=== PATIENT | female | born 1985 | race African-American/Black ===

== ENCOUNTER 2016-05-19 12:18 | Emergency (ER) | payer SELFPAY ==
--- NOTE | 2016-05-19 12:57 | ERRECORD ---
[facility] EMERGENCY RECORD HPI VAGINAL DISCHARGE (12:32 DHAM) CHIEF COMPLAINT: Patient presents for evaluation of vaginal itching. HISTORIAN: History provided by patient. LOCATION: Symptoms are localized, most severe in the vagina, Pt has not been taking her diabetic medicine for the last 3 days. she does not recall the name of the medicine and she has plenty of medicine at home. QUALITY: Discharge described as, small amount, of white discharge, with pruritis, no foul odor, "small white chunks in the discharge". SEVERITY: Current severity of pain rated as 8/10. TIME COURSE: Gradual onset of symptoms, 3, days priror to arrival. ASSOCIATED WITH: No associated chills, No associated diarrhea, No associated fever, No associated flank pain, No associated loss of appetite, No associated nausea, No associated trauma, No associated urinary tract infection signs or symptoms, No associated vomiting. EXACERBATED BY: Patient's condition exacerbated by nothing. RELIEVED BY: Patient's condition relieved by nothing. ROS (12:35 DHAM) CONSTITUTIONAL: Historian denies chills, denies fever. GENITOURINARY FEMALE: Historian denies dysuria, reports frequency, denies , denies urgency, denies vaginal bleeding, reports vaginal discharge. MUSCULOSKELETAL: Historian denies arthralgias, denies back pain, denies fall, denies injury. SKIN: Historian denies rash, denies skin changes. ENDOCRINE: Historian reports polydipsia, reports polyuria. HEMO/LYMPHATIC: Historian denies abnormal blood clotting. PAST MEDICAL HISTORY (12:26 JSHI) MEDICAL HISTORY: Past medical history includes history of diabetes, Type II. FEMALE SURGICAL HISTORY: BREAST REDUCTION, Surgical history of tubal ligation. PSYCHIATRIC HISTORY: no history of suicidal ideations, No history of suicide attempts, No history of hallucinations, No history of homicidal ideations, No history of violence towards others, No previous psychiatric history. VERIFIED 16. SOCIAL HISTORY: Patient currently uses drugs, abuses marijuana, Social drug use, Drug history notes: WEEKLY, Patient has no smoking history, Patient denies alcohol use,. KNOWN ALLERGIES No Known Allergies (Unconfirmed) No Known Drug Allergies CURRENT MEDICATIONS (12:23 [facility]) &a-1R&a+25V*p+0X*[id number]*c202B*c15G*c2P*p-0X&a-25V&a+1R Name: Ana Paula Conway : 1985 F30 MedRec: [id number] AcctNum: [id number] Prepared: WedMay 20, 2016 10:52 by Interface Page 1 of 2 pMD [facility] EMERGENCY RECORD None VITAL SIGNS (12:22 JSHI) VITAL SIGNS: BP: 125/85, Pulse: 78, Resp: 16, Temp: 98.5 (Oral), Pain: 8, O2 sat: 98 on Room Air, Time: 05/19/2016 12:22. PHYSICAL EXAM (12:41 DHAM) CONSTITUTIONAL: Vital signs reviewed, Patient afebrile, Pulse normal, Blood pressure normal, Respiratory rate normal, Patient appears non toxic, Patient appears pain free, Patient alert and oriented to person, place and time. ABDOMEN FEMALE: Abdominal exam included findings of abdomen nontender, Bowel sounds normal, Liver normal, Spleen normal, no distension, no peritoneal signs, no rigidity, no guarding, no rebound, no ventral hernia, no incisional hernia. GENITOURINARY FEMALE: Genitourinary exam included findings of external genitalia normal, Discharge present, white in color, small amount, small clumps of cottage cheese like material on the external genitalia. BACK: pt declined speculum exam. NEURO: Juliano coma scale 15, Neuro exam findings include patient oriented to person, place and time, Speech normal, Gait normal. SKIN: Skin exam included findings of skin warm, dry, and normal in color, no rash. PSYCHIATRIC: Psychiatric exam included findings of patient oriented to person place and time. PROBLEM LIST No recorded problems DIAGNOSIS (12:43 DHAM) FINAL: PRIMARY: yeast vaginitis. PRESCRIPTION (12:47 DHAM) Diflucan: TABLET : 150 mg : ORAL : Quantity: 1 Unit: tab(s) Route: ORAL Schedule: once a day (in the morning) Dispense: 2 Unit: tab(s) May substitute. Refills: No Refills . NOTES: take one today and repeat in 3 days if not totally resolved. No refills. DISPOSITION PATIENT: Disposition Type: Discharge, Disposition: *Discharge Home. (12:43 DHAM) Patient left the department. (12:51 LGIB) Castle: BLANCA=MD Ana, Bob JSMI=BRITTANY Hendrix, Juana LGIB=BRITTANY Strong, Nanette &a-1R&a+25V*p+0X*x2422D*c202B*c15G*c2P*p-0X&a-25V&a+1R Name: Ana Paula Conway Meg : 1985 F30 MedRec: [id number] AcctNum: [id number] Prepared: Eamon May 20, 2016 10:52 by Interface Page 2 of 2 pMD MTDD
--- NOTE | 2016-05-19 13:03 | PICIS ---
[facility] EMERGENCY RECORD TRIAGE (WedMay 19, 2016 12:23 JSMI) PATIENT: NAME: Ana Paula Conway, AGE: 30, GENDER: female, : Wed1985, TIME OF GREET: WedMay 19, 2016 12:19, PREFERRED LANGUAGE: [place] Leonean, ETHNICITY: Not or , FALL RISK: NO, ECODE BILLING MAP: [facility], SSN: [id number], Zip Code: [address], KG WEIGHT: 68.04, , , PERSON ID: [id number], PAYMENT: [employer] Self Pay, PCP: [facility]. (WedMay 19, 2016 12:23 JSMI) PHONE: . (12:27) COMPLAINT: vaginal itching. (WedMay 19, 2016 12:23 JSMI) ADMISSION: URGENCY: 4 Non Urgent, ADMISSION SOURCE: Home, TRANSPORT: CAR, BED: ER -02. (WedMay 19, 2016 12:23 JSMI) ASSESSMENT: Assessment: PT PRESENTS AWAKE ALERT AND ORIENTED. SKIN PINK WARM AND DRY., Symptoms began 05/17/2016. (12:26 JSMI) IMMUNIZATIONS: Flu vaccine up to date, Tetanus immunization up to date. (12:26 JSMI) SIRS SCORING: Heart Rate 55-109 (0), Temp range 96.8-101.1 (0), respiratory rate 12-24 (0), Mental Status altered: no (0). (12:26 JSMI) PROVIDERS: TRIAGE NURSE: Juana Hendrix RN. (WedMay 19, 2016 12:23 JSMI) VITAL SIGNS: BP 125/85, Pulse 78, Resp 16, Temp 98.5, (Oral), Pain 8, O2 Sat 98, on Room Air, Time 05/19/2016 12:22. (12:22 JSMI) PREVIOUS VISIT ALLERGIES: No Known Drug Allergies. (WedMay 19, 2016 12:23 JSMI) No Known Drug Allergies. (12:26 JSMI) KNOWN ALLERGIES No Known Allergies (Unconfirmed) No Known Drug Allergies CURRENT MEDICATIONS (12:23 JSMI) None VITAL SIGNS (12:22 JSMI) VITAL SIGNS: BP: 125/85, Pulse: 78, Resp: 16, Temp: 98.5 (Oral), Pain: 8, O2 sat: 98 on Room Air, Time: 05/19/2016 12:22. NURSING ASSESSMENT: GENITOURINARY (12:40 JSMI) CONSTITUTIONAL: Complex assessment performed, Patient arrives ambulatory, Gait steady, History obtained from patient, Patient appears comfortable, Patient cooperative, Patient alert, Oriented to person, place and time, Skin warm, Skin dry, Skin normal in color, Mucous membranes pink, Mucous membranes moist, Patient is well-groomed, Patient complains of VAGINAL ITCHING. PAIN FEMALE: to the clitoris, to the left labia majora, to the right labia majora, to the labia majora, to the left labia minora, to the right labia minora, to the labia minora, to the vagina. &a-1R&a+25V*p+0X*t6850X*c202B*c15G*c2P*p-0X&a-25V&a+1R Name: Ana Paula Conway : 1985 F30 MedRec: [id number] AcctNum: [id number] Prepared: WedMay 20, 2016 10:57 by Interface Page 1 of 4 pMD [facility] EMERGENCY RECORD GENITOURINARY FEMALE: Associated with vaginal discharge, of cheesy, white discharge. ABDOMEN: Abdomen soft, non-tender. NURSING PROCEDURE: BEDSIDE TESTING (12:33 JSMI) GLUCOSE: Capillary blood sample, Result (mg/dl) 94. NURSING PROCEDURE: DISCHARGE NOTE (12:50 LGIB) DISCHARGE: Patient discharged to home, ambulating without assistance, driving self, unaccompanied, Summary of Care printed/ provided, Patient requested and was provided an electronic copy of Discharge Instructions, Discharge instructions given to patient, Simple or moderate discharge teaching performed, Prescriptions given and instructions on side effects given, Above person(s) verbalized understanding of discharge instructions and follow-up care, Patient treated and evaluated by physician. BELONGINGS: Belongings and valuables with patient at time of discharge include:, Belongings remain with patient, Valuables remain with patient. HPI VAGINAL DISCHARGE (12:32 DHAM) CHIEF COMPLAINT: Patient presents for evaluation of vaginal itching. HISTORIAN: History provided by patient. LOCATION: Symptoms are localized, most severe in the vagina, Pt has not been taking her diabetic medicine for the last 3 days. she does not recall the name of the medicine and she has plenty of medicine at home. QUALITY: Discharge described as, small amount, of white discharge, with pruritis, no foul odor, "small white chunks in the discharge". SEVERITY: Current severity of pain rated as 8/10. TIME COURSE: Gradual onset of symptoms, 3, days priror to arrival. ASSOCIATED WITH: No associated chills, No associated diarrhea, No associated fever, No associated flank pain, No associated loss of appetite, No associated nausea, No associated trauma, No associated urinary tract infection signs or symptoms, No associated vomiting. EXACERBATED BY: Patient's condition exacerbated by nothing. RELIEVED BY: Patient's condition relieved by nothing. ROS (12:35 [facility]) CONSTITUTIONAL: Historian denies chills, denies fever. GENITOURINARY FEMALE: Historian denies dysuria, reports frequency, denies , denies urgency, denies vaginal bleeding, reports vaginal discharge. MUSCULOSKELETAL: Historian denies arthralgias, denies back pain, denies fall, denies injury. SKIN: Historian denies rash, denies skin changes. ENDOCRINE: Historian reports polydipsia, reports polyuria. &a-1R&a+25V*p+0X*f7249J*c202B*c15G*c2P*p-0X&a-25V&a+1R Name: Ana Paula Conway : 1985 F30 MedRec: [id number] AcctNum: [id number] Prepared: WedMay 20, 2016 10:57 by Interface Page 2 of 4 pMD [facility] EMERGENCY RECORD HEMO/LYMPHATIC: Historian denies abnormal blood clotting. PAST MEDICAL HISTORY (12:26 [facility]) MEDICAL HISTORY: Past medical history includes history of diabetes, Type II. FEMALE SURGICAL HISTORY: BREAST REDUCTION, Surgical history of tubal ligation. PSYCHIATRIC HISTORY: no history of suicidal ideations, No history of suicide attempts, No history of hallucinations, No history of homicidal ideations, No history of violence towards others, No previous psychiatric history. VERIFIED 04/13/16. SOCIAL HISTORY: Patient currently uses drugs, abuses marijuana, Social drug use, Drug history notes: WEEKLY, Patient has no smoking history, Patient denies alcohol use,. PHYSICAL EXAM (12:41 DHAM) CONSTITUTIONAL: Vital signs reviewed, Patient afebrile, Pulse normal, Blood pressure normal, Respiratory rate normal, Patient appears non toxic, Patient appears pain free, Patient alert and oriented to person, place and time. ABDOMEN FEMALE: Abdominal exam included findings of abdomen nontender, Bowel sounds normal, Liver normal, Spleen normal, no distension, no peritoneal signs, no rigidity, no guarding, no rebound, no ventral hernia, no incisional hernia. GENITOURINARY FEMALE: Genitourinary exam included findings of external genitalia normal, Discharge present, white in color, small amount, small clumps of cottage cheese like material on the external genitalia. BACK: pt declined speculum exam. NEURO: Juliano coma scale 15, Neuro exam findings include patient oriented to person, place and time, Speech normal, Gait normal. SKIN: Skin exam included findings of skin warm, dry, and normal in color, no rash. PSYCHIATRIC: Psychiatric exam included findings of patient oriented to person place and time. EVENTS TRANSFER: Triage to Emergency Emergency Room -02. (12:23 JSMI) Removed from Emergency Emergency Room -02. (12:51 LGIB) PROBLEM LIST No recorded problems DIAGNOSIS (12:43 DHAM) FINAL: PRIMARY: yeast vaginitis. DISPOSITION PATIENT: Disposition Type: Discharge, Disposition: *Discharge Home. (12:43 DHAM) Patient left the department. (12:51 LGIB) &a-1R&a+25V*p+0X*h0329Z*c202B*c15G*c2P*p-0X&a-25V&a+1R Name: Ana Paula Conway Meg : 1985 F30 MedRec: [id number] AcctNum: [id number] Prepared: WedMay 20, 2016 10:57 by Interface Page 3 of 4 pMD [facility] EMERGENCY RECORD INSTRUCTION (12:45 DHAM) DISCHARGE: YEAST VAGINITIS. FOLLOWUP: [facility], Clinic, [address] [facility], [address], [facility] [address], . SPECIAL: Diflucan 150mg one today and repeat in 3 days if not totally resolved. Please take your diabetes medicine regularly as this will decrease the likelihood of recurrent yeast infections. Return here or see your pcp if your discharge and itching haven't resolved or certainly for fever or any worsening or other concerns. PRESCRIPTION (12:47 [facility]) Diflucan: TABLET : 150 mg : ORAL : Quantity: 1 Unit: tab(s) Route: ORAL Schedule: once a day (in the morning) Dispense: 2 Unit: tab(s) May substitute. Refills: No Refills . NOTES: take one today and repeat in 3 days if not totally resolved. No refills. IMAGING *DISCHARGE INSTRUCTIONS RECEIPT: Image captured from scanner. (12:51 LGIB) *SUPPLY CHARGE SHEET: Image captured from scanner. (12:52 LGIB) ADMIN (WedMay 20, 2016 10:48 [facility]) DIGITAL SIGNATURE: MD Perez Darren. Castle: BLANCA=MD Perez Darren JSMI=BRITTANY Hendrix Julie LGIB=BRITTANY Strong, Nanette &a-1R&a+25V*p+0X*k7360A*c202B*c15G*c2P*p-0X&a-25V&a+1R Name: Ana Paula Conway : 1985 F30 MedRec: [id number] AcctNum: [id number] Prepared: WedMay 20, 2016 10:57 by Interface Page 4 of 4 pMD MTDD
== END 2016-05-19 12:49 | disposition home or self-care (01) ==
LOC: BURERS 12:18
DX: B37.3 Candidiasis of vulva and vagina (principal); E11.9 Type 2 diabetes mellitus without complications
CPT/HCPCS: 36416; 99283

== ENCOUNTER 2017-01-24 06:25 | Emergency (ER) | payer SELFPAY ==
[2017-01-24 06:56] LABS: Bilirubin Negative (Negative); Blood, Urine Small (Negative); Clarity Cloudy (Clear); Glucose, Urine (Dipstick) Negative (Negative); Leukocyte Large (Negative); Nitrite Negative (Negative); Protein, Urine (Dipstick) 30 mg/dL (Neg-Trace); Specific Gravity, Urine 1.025 (1.005-1.030); pH, Urine 6.5 (5.0-9.0)
[2017-01-24 06:57] LABS: Pregnancy Test - Urine (BHCG) Negative (Negative); Pregu Control Background? CLEAR/WHITE (CLR/WHITE); Pregu Control Bar Appear? YES (CONTROL BAR); Specific Gravity 1.025 (1.002-1.036)
[2017-01-24] MEDS ORDERED: Fluconazole 100 MG TAB ONE (06:58)
[2017-01-24] MEDS ORDERED: Ketorolac Tromethamine 60 MG/2 ML VIAL ONE (06:59)
[2017-01-24 07:01] LABS: WBC/HPF 21-50 HPF (0-3)
[2017-01-24 07:02] LABS: Bacteria/HPF 2+ HPF (None Seen)
[2017-01-25 22:06] LABS: Chlamydia by PCR Not Detected (NotDetected); GC by PCR Not Detected (NotDetected)
== END 2017-01-24 07:20 | disposition home or self-care (01) ==
LOC: BURERS 06:25
DX: B37.3 Candidiasis of vulva and vagina (principal); E11.9 Type 2 diabetes mellitus without complications
CPT/HCPCS: 81003; 81015; 81025; 87077; 87086; 87480; 87491; 87510; 87591; 87660; 96372; J1885

== ENCOUNTER 2018-09-13 07:23 | Emergency (ER) | payer SELFPAY ==
[2018-09-13] MEDS ORDERED: Ibuprofen 800 MG TAB ONE (07:56)
--- NOTE | 2018-09-13 17:29 | RAD ---
LEFT SHOULDER THREE VIEWS 09/13/18 No fracture or dislocation was seen. The AC joint is normal in width. The scapula and visible adjacen t ribs appeared intact. IMPRESSION: No acute findings. POS: HOME
== END 2018-09-13 08:03 | disposition home or self-care (01) ==
LOC: BURERS 07:23
DX: S46.012A Strain of muscle(s) and tendon(s) of the rotator cuff of left shoulder, initial encounter (principal); X50.1XXA Overexertion from prolonged static or awkward postures, initial encounter

== ENCOUNTER 2018-10-31 19:33 | Emergency (ER) | payer SELFPAY ==
[2018-10-31] MEDS ORDERED: Fluconazole 100 MG TAB ONE ×2 (19:57→20:03)
[2018-10-31 20:10] LABS: Clarity Cloudy (Clear)
[2018-10-31 20:11] LABS: Bacteria/HPF 2+ HPF (None Seen); Bilirubin Negative (Negative); Blood, Urine Small (Negative); Crystals/HPF None Seen HPF (Negative); Glucose, Urine (Dipstick) Negative (Negative); Hyaline Casts/LPF NONE SEEN LPF (0-3 Hyaline); Leukocyte Large (Negative); Nitrite Negative (Negative); Other Casts/LPF None Seen LPF (0-3 Hyaline); Oval Fat Bodies/HPF None Seen HPF (None Seen); Protein, Urine (Dipstick) Trace mg/dL (Neg-Trace); Renal Epithelial None Seen HPF (0-3); Sperm/HPF None Seen HPF (None Seen); Transitional Epithelial None Seen HPF (0-3); Trichomonas/HPF None Seen HPF (None Seen); Yeast-All Forms None Seen HPF (None Seen)
== END 2018-10-31 20:17 | disposition home or self-care (01) ==
LOC: BURERS 19:33
DX: N30.01 Acute cystitis with hematuria (principal); N76.0 Acute vaginitis
CPT/HCPCS: 81003; 81015; 87086; 99283

== ENCOUNTER 2020-02-12 06:51 | Emergency (ER) | payer MEDICAID, SELFPAY ==
[2020-02-12] MEDS ORDERED: Ibuprofen 200 MG TAB ONE (07:06)
--- NOTE | 2020-02-12 13:31 | RAD ---
LEFT HAND 3 VIEWS: Date: 02/12/2020 No fracture was appreciated. All bones appear intact, including the carpal bones. On the PA view, the re was a hint of the bony density on the radial side of the fourth metacarpal head, however, this may actually be a sesamoid bone. I see no abnormalities here on the other exams. IMPRESSION: No acute findings. POS: HOME
== END 2020-02-12 06:58 | disposition home or self-care (01) ==
LOC: BURERS 06:51
DX: S60.222A Contusion of left hand, initial encounter (principal); W22.8XXA Striking against or struck by other objects, initial encounter

== ENCOUNTER 2020-02-12 19:38 | Emergency (ER) | payer SELFPAY ==
[2020-02-12] MEDS ORDERED: Acetaminophen/Codeine 30-300mg Tablet ONE (20:00)
== END 2020-02-12 20:13 | disposition home or self-care (01) ==
LOC: BURERS 19:38
DX: S63.92XA Sprain of unspecified part of left wrist and hand, initial encounter (principal); W23.0XXA Caught, crushed, jammed, or pinched between moving objects, initial encounter

== ENCOUNTER 2020-03-28 06:41 | Emergency (ER) | payer SELFPAY ==
[2020-03-28] MEDS ORDERED: Lidocaine 1% PF 5 ML VIAL ONE (06:52)
== END 2020-03-28 07:05 | disposition home or self-care (01) ==
LOC: BURERS 06:41
DX: S61.212A Laceration without foreign body of right middle finger without damage to nail, initial encounter (principal); W26.9XXA Contact with unspecified sharp object(s), initial encounter
CPT/HCPCS: 99281

== ENCOUNTER 2021-05-14 07:45 | Emergency (ER) | payer OTHER, SELFPAY ==
[2021-05-14] MEDS ORDERED: Ketorolac Tromethamine 30 MG/ML VIAL ONE (08:42)
[2021-05-14] MEDS ORDERED: Cyclobenzaprine 10 MG TAB ONE (08:42)
== END 2021-05-14 09:14 | disposition home or self-care (01) ==
LOC: BURERS 07:45
DX: S16.1XXA Strain of muscle, fascia and tendon at neck level, initial encounter (principal); V40.0XXA Car driver injured in collision with pedestrian or animal in nontraffic accident, initial encounter
CPT/HCPCS: 72125; 96372; J1885

== ENCOUNTER 2022-05-31 08:52 | Emergency (ER) | payer OTHER ==
[2022-05-31] MEDS ORDERED: Ketorolac Tromethamine 30 MG/ML VIAL ONE (09:10)
[2022-05-31 09:20] LABS: #Eosinphils 0.1 thou/uL (0.0-0.7); #Lymphocytes 2.1 thou/uL (1.20-3.40); #Monocytes 0.4 thou/uL (0.11-0.59); #Neutrophils 2.8 thou/uL (1.40-6.50); %Basophils 0.6 % (0.0-1.0); %Eosinophils 2.2 % (0.0-10.0); %Monocytes 6.9 % (0.0-10.0); %Neutrophils 51.4 % (42.0-75.0); Mean Corpuscular HGB CONC 31.4 g/dL (32.0-36.0); Mean Corpuscular Hemoglobin 25.7 pg (27.0-31.0); Mean Corpuscular Volume 81.7 fl (78.0-98.0); Mean Platelet Volume 11.3 fL (7.4-10.4); Platelet Count 215 10x3/uL (130-400); RBC Distribution Width 14.8 % (11.5-14.5); Red Blood Cell (RBC) Count 4.27 mill/uL (4.20-5.40); White Blood Cell (WBC) Count 5.4 10x3/uL (4.8-10.8)
[2022-05-31 09:38] LABS: ALT (SGPT) 10 U/L (8-55); AST (SGOT) 13 U/L (5-34); Albumin 3.7 g/dL (3.5-5.0); Alkaline Phosphatase 74 U/L (40-110); Anion Gap 12 mmol/L (10-20); BUN (Urea Nitrogen) 11 mg/dL (7.0-18.7); Bilirubin, Total 0.3 mg/dL (0.2-1.2); Calc. Creatinine Clearance 0 mL/min (70-130); Calcium 8.4 mg/dL (7.8-10.44); Carbon Dioxide 19 mmol/L (22-29); Chloride 111 mmol/L (98-107); Estimated GFR 104; Globulin 2.6 g/dL (2.4-3.5); Glucose 95 mg/dL (70-105); Potassium 3.8 mmol/L (3.5-5.1); Protein, Total 6.3 g/dL (6.0-8.3); Sodium 138 mmol/L (136-145)
== END 2022-05-31 10:16 | disposition home or self-care (01) ==
LOC: BURERS 08:52
DX: R07.89 Other chest pain (principal)
CPT/HCPCS: 71045; 80053; 84484; 85025; 85379; 93005; 96374; J1885

== ENCOUNTER 2022-07-14 19:43 | Emergency (ER) | payer OTHER ==
[2022-07-14 20:25] LABS: #Eosinphils 0.1 thou/uL (0.0-0.7); #Monocytes 0.5 thou/uL (0.11-0.59); #Neutrophils 3.6 thou/uL (1.40-6.50); %Basophils 0.7 % (0.0-1.0); %Eosinophils 1.8 % (0.0-10.0); %Lymphocytes 41.1 % (21.0-51.0); %Monocytes 6.8 % (0.0-10.0); %Neutrophils 49.7 % (42.0-75.0); Hemoglobin 10.6 g/dL (12.0-16.0); Mean Corpuscular HGB CONC 32.1 g/dL (32.0-36.0); Mean Corpuscular Hemoglobin 26.3 pg (27.0-31.0); Mean Platelet Volume 10.7 fL (7.4-10.4); Platelet Count 235 10x3/uL (130-400); RBC Distribution Width 14.8 % (11.5-14.5); Red Blood Cell (RBC) Count 4.01 mill/uL (4.20-5.40); White Blood Cell (WBC) Count 7.3 10x3/uL (4.8-10.8)
[2022-07-14] MEDS ORDERED: Morphine 2 MG/ML VIAL ONE (20:25)
[2022-07-14] MEDS ORDERED: Morphine 4 MG/ML VIAL ONE (20:26)
[2022-07-14 20:35] LABS: Prothrombin Time 13.1 sec (12.0-14.7)
[2022-07-14 20:43] LABS: ALT (SGPT) 7 U/L (8-55); AST (SGOT) 25 U/L (5-34); Albumin 3.9 g/dL (3.5-5.0); Alkaline Phosphatase 92 U/L (40-110); Anion Gap 13 mmol/L (10-20); BUN (Urea Nitrogen) 12 mg/dL (7.0-18.7); Bilirubin, Total Less than 0.2 mg/dL (0.2-1.2); Calc. Creatinine Clearance 0 mL/min (70-130); Calcium 9.2 mg/dL (7.8-10.44); Carbon Dioxide 23 mmol/L (22-29); Chloride 108 mmol/L (98-107); Estimated GFR 96; Glucose 105 mg/dL (70-105); Potassium 3.9 mmol/L (3.5-5.1); Protein, Total 6.9 g/dL (6.0-8.3); Sodium 140 mmol/L (136-145)
[2022-07-14 20:45] LABS: BHCG - Serum Negative (NEGATIVE); Pregs Control Background? CLEAR/WHITE (CLR/WHITE); Pregs Control Bar Appear? YES (CONTROL BAR)
== END 2022-07-14 21:54 | disposition home or self-care (01) ==
LOC: BURERS 19:43
DX: S20.212A Contusion of left front wall of thorax, initial encounter (principal); W08.XXXA Fall from other furniture, initial encounter
CPT/HCPCS: 71260; 74177; 80053; 84703; 85025; 85610; 96374; J2270; J2272

== ENCOUNTER 2022-12-25 18:30 | Emergency (ER) | payer OTHER | END 2022-12-25 19:00 | disposition home or self-care (01) | LOC: BURERS 18:30 | DX: U07.1 COVID-19 (principal) | CPT/HCPCS: 87635 ==

== ENCOUNTER 2022-12-25 22:42 | Emergency (ER) | payer OTHER ==
[2022-12-25 23:55] LABS: Troponin I Less than 0.010 ng/mL (< 0.028)
[2022-12-25 23:56] LABS: Carbon Dioxide 21 mmol/L (22-29); Chloride 108 mmol/L (98-107); Potassium 3.5 mmol/L (3.5-5.1); Sodium 139 mmol/L (136-145)
[2022-12-25 23:57] LABS: ALT (SGPT) Less than 7 U/L (8-55); AST (SGOT) 14 U/L (5-34); Albumin 3.9 g/dL (3.5-5.0); Alkaline Phosphatase 86 U/L (40-110); BUN (Urea Nitrogen) 8 mg/dL (7.0-18.7); Bilirubin, Total 0.2 mg/dL (0.2-1.2); Calc. Creatinine Clearance 0 mL/min (70-130); Calcium 8.6 mg/dL (7.6-10.4); Estimated GFR 98; Globulin 2.3 g/dL (2.4-3.5); Glucose 116 mg/dL (70-105); Protein, Total 6.2 g/dL (6.0-8.3)
[2022-12-25 23:58] LABS: Anion Gap 14 mmol/L (10-20)
[2022-12-26 00:06] LABS: %Lymphocytes 18.4 % (21.0-51.0); %Monocytes 7.7 % (0.0-10.0); %Neutrophils 72.8 % (42.0-75.0); Hematocrit 31.9 % (36.0-47.0); Hemoglobin 9.6 g/dL (12.0-16.0); Mean Corpuscular HGB CONC 30.2 g/dL (32.0-36.0); Mean Corpuscular Hemoglobin 23.6 pg (27.0-31.0); Mean Corpuscular Volume 78.1 fl (78.0-98.0); Mean Platelet Volume 9.8 fL (7.4-10.4); Platelet Count 213 10x3/uL (130-400); Red Blood Cell (RBC) Count 4.08 mill/uL (4.20-5.40); White Blood Cell (WBC) Count 5.3 10x3/uL (4.8-10.8)
[2022-12-26 00:07] LABS: #Monocytes 0.4 thou/uL (0.11-0.59); #Neutrophils 3.9 thou/uL (1.40-6.50); %Basophils 0.5 % (0.0-1.0); %Eosinophils 0.7 % (0.0-10.0); MDiff Complete? YES
[2022-12-26] MEDS ORDERED: Doxycycline 100 MG CAP ONE (00:15)
== END 2022-12-26 00:15 | disposition home or self-care (01) ==
LOC: BURERS 22:42
DX: J18.9 Pneumonia, unspecified organism (principal); R55 Syncope and collapse
CPT/HCPCS: 36415; 71045; 80053; 83880; 84484; 85025; 87635; 93005; 99282

== ENCOUNTER 2023-03-29 07:02 | Emergency (ER) | payer OTHER, SELFPAY ==
[2023-03-29] MEDS ORDERED: Acetaminophen 500 MG TAB ONE (07:30)
[2023-03-29] MEDS ORDERED: Ibuprofen 800 MG TAB ONE (07:30)
[2023-03-29] MEDS ORDERED: Dexamethasone 10 MG/ML VIAL ONE (07:42)
== END 2023-03-29 07:45 | disposition home or self-care (01) ==
LOC: BURERS 07:02
DX: L08.9 Local infection of the skin and subcutaneous tissue, unspecified (principal)
CPT/HCPCS: 99283; J1100

== ENCOUNTER 2025-04-22 13:27 | Emergency (ER) | payer MEDICARE, MEDICAID ==
[2025-04-22 13:48] LABS: Glucose, Urine (Dipstick) Negative (Negative); Leukocyte Small (Negative); Protein, Urine (Dipstick) 30 mg/dL (Neg-Trace); Specific Gravity, Urine Greater/Equal 1.030 (1.005-1.030)
[2025-04-22] MEDS ORDERED: Acetaminophen 500 MG TAB ONE (13:52)
[2025-04-22 13:53] LABS: Bacteria/HPF 2+ HPF (None Seen); CAUTI Indications for Culture Dysuria,urgency,freq; RBC/HPF 0-3 HPF (0-3)
[2025-04-22 13:54] LABS: Mucous/LPF 3+ LPF (<2+); Yeast-Budding Rare HPF (None Seen)
[2025-04-22 13:55] LABS: Urine Culture Reflex No No
== END 2025-04-22 14:02 | disposition home or self-care (01) ==
LOC: BURERS 13:27
DX: B37.31 Acute candidiasis of vulva and vagina (principal)
CPT/HCPCS: 81001; 99283

== ENCOUNTER 2025-05-02 05:47 | Emergency (ER) | payer MEDICARE, MEDICAID ==
[2025-05-02] MEDS ORDERED: Lidocaine 1% (PF) 30 ML VIAL ONE (06:44)
[2025-05-02] MEDS ORDERED: Ketorolac Tromethamine 30 MG (1 mL) VIAL ONE (07:02)
== END 2025-05-02 07:14 | disposition home or self-care (01) ==
LOC: BURERS 05:47
DX: M62.838 Other muscle spasm (principal)
CPT/HCPCS: J1885; J2003; 96372; 99283